=== PATIENT | female | born 1980 | race American Indian/Alaskan Native ===

== ENCOUNTER 2017-03-07 06:49 | Day surgery (SDC) | payer OTHER ==
[2017-03-07 06:57] VITALS: BMI 28.3
[2017-03-07 07:16] VITALS: O2SAT 100
[2017-03-07] MEDS ORDERED: Propofol 10 mg/ml Inj (20 ML) ONE (08:09)
[2017-03-07] MEDS ORDERED: Lidocaine Hydrochloride 5 ML INJ ONE (08:10)
--- NOTE | 2017-03-07 08:13 | CP.SDSHP ---
Same Day Surgery H & P - History Proposed Procedure: COLONSCOPY Pre-Op Diagnosis: SEE NOTES - Previous Medical/Surgical History Neuro: Backaches Previous Surgical History: STRONG FAMILY HX. OF COLON CA / SPINAL INJ. - Allergies Allergies: Allergies tramadol Allergy (Verified 03/07/17 07:04) VOMITING SEAFOOD Allergy (Uncoded 03/07/17 08:01) URTICARIA - Physical Exam General Appearance: N Vital Signs: Vital Signs 03/07/17 07:03 Temperature 99 F Pulse Rate 80 Respiratory 20 Rate Blood Pressure 113/64 O2 Sat by Pulse 100 Oximetry Mental Status: Alert & Oriented x3 Neuro: WNL Heart: WNL Lungs: WNL GI: Other - {Optional Preform as Required} Breast: WNL Abdomen: Other Rectal: Other Integument: WNL : WNL Ortho: Other ENT: WNL - Impression Pt. Evaluated Today:Candidate for Anesthesia & Procedure: Yes - Date & Time Time: 08:13 Short Stay Discharge - Short Stay Discharge Admitting Diagnosis/Reason for Visit: HX OF CANCER Disposition: HOME/ ROUTINE
[2017-03-07] MEDS ORDERED: Belladonna-Phenobarbital PO ONE (08:45)
[2017-03-07 12:31] VITALS: BP 103/57; PULSE 75; RESP 15; TEMP 98.2
== END 2017-03-07 12:15 | disposition home or self-care (01) ==
LOC: C.ENDO 06:49
PROVIDERS: ATTEND Specialist
DX: Z12.11 Encounter for screening for malignant neoplasm of colon (principal); Z80.0 Family history of malignant neoplasm of digestive organs; K64.4 Residual hemorrhoidal skin tags; K64.8 Other hemorrhoids; K52.9 Noninfective gastroenteritis and colitis, unspecified
CPT/HCPCS: 45380; 84703; 88305; J2704